=== PATIENT | male | born 1965 | race Caucasian/White ===

== ENCOUNTER 2020-05-22 10:30 | Inpatient (IN) ==
--- NOTE | 2020-04-21 13:53 | PAT Medication Instructions ---
Medication Instructions Date of Service April 21, 2020 Home Medications ibuprofen 200 mg PO Q6H PRN ASK your surgeon for instructions ibuprofen 200 mg PO Q6H PRN Other Notes If you have any questions please call us at [phone] or [phone] or [phone] or [phone]
--- NOTE | 2020-04-24 10:30 | Anesthesiology Consultation ---
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 No known COVID-19 positive contacts. No current COVID-19 related symptoms. Surgeon arranging preop COVID testing. Awaiting results. Patient states he is unsure if he is working again after having preop COVID testing but states that if he does have to that he will as usual be very diligent regarding following COVID guidelines. Chart Review Chart Review: Acceptable Risk for Surgery and Patient seen in Pre Admission Testing Teaching & Discussion Pre-Anesthesia Teaching/Discussion Notes: Instructed NPO after midnight before surgery,except medications with 15 cc of water. Medication instructions provided according to the [facility] guidelines. History Surgery Operation Date: 05/22/20 12:25 Proposed Procedures p Right Total Shoulder Arthroplasty, - Benny Fraser M.D. s Right Rotator Cuff Repair and Acromioplasty - Benny Fraser M.D. Height/Weight Height: 5 ft 7 in Weight: 106.1 kg Allergies Allergy/AdvReac Type Severity Reaction Status Date / Time Sulfa (Sulfonamide Allergy SOB, heart Verified 04/24/20 10:57 Antibiotics) racing meperidine AdvReac Intermediate GI SYMPTOMS Verified 04/18/20 14:27 Medications Home Medications Medication Instructions Recorded Confirmed Last Taken ibuprofen 200 mg PO Q6H PRN 04/18/20 04/18/20 Unknown Past Medical History Medical History (Updated 04/24/20 @ 10:58 by Stephany Mchugh) Herniated intervertebral disc History of kidney stones Obesity Osteoarthritis Situational anxiety Sleep apnea suspected, testing inconclusive, no device TMJ click occasional jaw locking episodes during sleep x years (no locking 1+ years) Exercise / Class Metabolic Activity II 4-5 Yardwork/Stairs/Walk up hill Past Family History Family History Other No family history of adverse response to anesthesia Past Surgical History Surgical History History of carpal tunnel release of both wrists History of colonoscopy History of knee replacement BL History of tooth extraction Past Anesthesia History No Hx of Anesthesia Complications and No Family Hx of Anesthesia Complications History of PONV No Hx of PONV and No Hx of Motion Sickness Social History Smoking Status: Former smoker Do You Dip or Chew Tobacco: No Smoking End Date: quit 1999 Hx Alcohol Use: No Alcohol type: beer alcohol intake frequency: a few times a week Hx Substance Use: No substance use type: does not use Review of Systems Patient denies chest pain, shortness of breath, dyspnea on exertion, reflux, cough, wheezing, palpitations. Physical Exam Vital Signs VITALS BP 126/82 P 62 TEMP 98.2 SP02 96%RA RESP 18 PHYSICAL Full neck and c-spine range of motion. Full TMJ range of motion. TMD 3 finger breaths Mallampati Score 2 Dentition: several missing including upper front (has upper partial) Lungs: clear throughout to auscultation Cardiac: regular rate and rhythm, no murmurs noted Spine: normal Carotid arteries: negative bruit Extremities: no edema Testing Laboratory Results 04/24/20 11:11 04/24/20 11:11 PT 10.5 Seconds (9.0-12.0) 04/24/20 11:11 INR 1.0 (0.9-1.1) 04/24/20 11:11 APTT 30.8 Seconds (21.0-31.0) 04/24/20 11:11 Hemoglobin A1c 5.4 % (4.5-5.6) 04/24/20 11:11 Urine Color Yellow 04/24/20 Unknown Urine Appearance Clear (Clear) 04/24/20 Unknown Urine pH 6.0 (4.5-7.5) 04/24/20 Unknown Ur Specific [place] 1.029 (1.000-1.030) 04/24/20 Unknown Urine Protein Negative (Negative) 04/24/20 Unknown Urine Glucose (UA) Negative (Negative) 04/24/20 Unknown Urine Ketones Negative (Negative) 04/24/20 Unknown Urine Nitrite Negative (Negative) 04/24/20 Unknown Ur Leukocyte Esterase Negative (Negative) 04/24/20 Unknown Blood Type O Negative 04/24/20 11:11 Antibody Screen NEGATIVE 04/24/20 11:11 Electrocardiogram Date: 04/24/20 SB at 54bpm. RAD. NS IVCD. NS TWA. Chest X-Ray Date: 04/24/20 Findings: + NAD Stress Test Date: 12/20/13 Type: DSE Stress echo/ekg negative for inducible ischemia. LVEF 50-54$. 85% MPHR. MNild AV sclerosis.
--- NOTE | 2020-04-24 11:51 | XRay Report ---
XR chest Pre-admission PA/Lat HISTORY: 54 years-old Male pat preoperative exam. No acute chest complaints COMPARISON: Chest radiograph 08/07/2019 TECHNIQUE: PA and lateral views of the chest FINDINGS: Cardiomediastinal and hilar silhouettes are within normal limits. No pneumothorax, pleural effusion, airspace consolidation or overt pulmonary edema. Bones of the chest appear grossly intact. Degenerati ve changes of the shoulders and spine. IMPRESSION: No acute process. ACT 112: Negative or not required by law. The above report was generated using voice recognition software. It may contain grammatical, syntax o r spelling errors. Electronically signed by: Neo Richey M.D. 04/24/2020 11:49 AM
[2020-04-24 11:53] LABS: Appearance Urine Clear (Clear); Bilirubin Urine Negative (Negative); Blood Urine Negative (Negative); Color Urine Yellow; Glucose Urine UA Negative (Negative); Ketones Urine Negative (Negative); Leukocyte Esterase Urine Negative (Negative); Nitrite Urine Negative (Negative); Protein Urine Negative (Negative); Specific Gravity Urine 1.029 (1.000-1.030); Urobilinogen Urine Negative (Negative)
[2020-04-24 11:54] LABS: Basophils # (auto) 0.01 K/uL (0-0.2); Basophils % (auto) 0.2 %; Eosinophils # (auto) 0.05 K/uL (0-0.5); Eosinophils % (auto) 1.1 %; Hematocrit (blood only) 43.8 % (42-52); Hemoglobin 15.3 g/dL (14.0-18.0); Lymphocytes # (auto) 1.29 K/uL (1.2-3.4); Lymphocytes % (auto) 27.2 %; Mean Corpuscular Hemoglobin 30.3 pg (25-34); Mean Corpuscular Hgb Conc 34.9 g/dL (32-36); Mean Corpuscular Volume 86.7 fL (80-100); Mean Platelet Volume 9.8 fL (7.4-10.4); Monocytes # (auto) 0.52 K/uL (0.11-0.59); Neutrophils # (auto) 2.87 K/uL (1.4-6.5); Neutrophils % (auto) 60.5 %; Platelet Count 181 K/uL (130-400); RDW Coefficient of Variation 12.7 % (11.5-14.5); RDW Standard Deviation 40.5 fL (36.4-46.3); Red Blood Count 5.05 M/uL (4.7-6.1); White Blood Count 4.74 K/uL (4.8-10.8)
[2020-04-24 12:03] LABS: Partial Thromboplastin Ratio 1.1; Partial Thromboplastin Time 30.8 Seconds (21.0-31.0); Prothrombin Time 10.5 Seconds (9.0-12.0)
[2020-04-24 12:22] LABS: Albumin Level 3.7 gm/dl (3.4-5.0); BUN Creatinine Ratio 27.1 (10-20); Calcium 8.9 mg/dl (8.5-10.1); Creatinine Clr Calc Pharmacy 101.9 ml/min; Est GFR (African American) 104.6; Est GFR (Non-African American) 90.3
[2020-04-24 12:31] LABS: Estimated Average Glucose 108 mg/dl; Hemoglobin A1C 5.4 % (4.5-5.6)
--- NOTE | 2020-04-24 17:33 | Electrocardiogram Report ---
Test Reason : Blood Pressure : / mmHG Vent. Rate : 054 BPM Atrial Rate : 054 BPM P-R Int : 166 ms QRS Dur : 124 ms QT Int : 402 ms P-R-T Axes : 052 133 004 degrees QTc Int : 381 ms Sinus bradycardia Right axis deviation Non-specific intra-ventricular conduction delay Nonspecific T wave abnormality Abnormal ECG When compared with ECG of 07-OCT-2018 13:31, QRS axis Shifted right Nonspecific T wave abnormality now evident in Lateral leads Confirmed by Lincoln Helm ([id number]) on 04/24/2020 5:33:18 PM Referred By: Benny Fraser Confirmed By:Juan Daniel Helm
--- NOTE | 2020-05-19 13:24 | History & Physical Report ---
Date of Service May 19, 2020 Assessment & Plan (1) Primary osteoarthritis, right shoulder: Based on his x-rays and MRI, I do think that he is still a candidate for a standard total shoulder arthroplasty. Given his age and activity level, I think it would be ideal to perform a standard total shoulder rather than a reverse if possible. I think this would give him a better functional outcome. However, I am worried that his partial-thickness rotator cuff tear may progress with time. I advised him that if this progresses to a full-thickness rotator cuff tear, he may require revision to a reverse total shoulder at some point in the future and he understands this. We again discussed further conservative treatment with glenohumeral joint steroid injections, but he really wants to pursue surgery as these injections have been minimally beneficial for him in the past. I think this is reasonable. I therefore offered him a right standard total shoulder arthroplasty. I will plan to put an anchor in the rotator cuff to hopefully prevent progression to a full-thickness tear at the time of surgery. I will also try to reach the anterior lateral acromion and perform an acromioplasty at the same setting. Will have to get him in for a blueprint CT for preoperative planning. Risks, benefits, and alternatives of surgery were explained in detail. The surgical procedure, as well as postoperative recovery and rehabilitation, was also explained in detail. Risks include bleeding; infection; damage to surrounding structures such as nerves, blood vessels, and tendons that run in the area; persistent pain or stiffness; hardware failure; dislocation; brachial plexus palsy; blood clots; or need for further surgery. The patient understands all of this and wishes to proceed with surgery. Preoperative workup was completed today, and informed consent was obtained. Present on Admission?: Yes Admission and Anticipated Discharge Date Admission Date: 05/22/20 Anticipated date of discharge: 05/23/20 History of Present Illness Chief Complaint: Right shoulder pain Primary Care Provider: Kesha Watts MD Mr. Roth returns today for his right shoulder pain. Again, he is a 54-year-old [id number] male with chronic right shoulder pain over the past 5 years with progressive worsening. He denies any significant injury around 5 years ago, but does note that he had a shoulder dislocation when he was about 27 years old[address] He saw Dr. Tejeda in November 2019 for this problem, and was diagnosed with arthritis. He received a steroid injection at that time, but he feels like it only gave him mild improvement in his pain and did not last very long. I also gave him a shoulder joint injection at his appointment with me in February, and he reports no improvement with that injection. This pain is waking him up at night. He is very active, and splits wood frequently. 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 At his last appointment we discussed proceeding with a total shoulder arthroplasty, and I sent him for an MRI to see if he is a candidate for a primary or we need to do a reverse total shoulder. He returns today for the results of this. Also at his last appointment, he noted some neck pain and cracking. X-rays at that time showed severe C-spine arthritis. I sent him to the spine team, who evaluated him and told him that he is already auto fusing several vertebra, and his pain may decrease with time as this continues. Allergies Allergy/AdvReac Type Severity Reaction Status Date / Time Sulfa (Sulfonamide Allergy SOB, heart Verified 04/24/20 10:57 Antibiotics) racing meperidine AdvReac Intermediate GI SYMPTOMS Verified 04/18/20 14:27 Home Medications Home Medications Medication Instructions Recorded Confirmed Type ibuprofen 200 mg PO Q6H PRN 04/18/20 04/18/20 History Past Med/Surg History Medical History (Updated 05/19/20 @ 13:24 by Benny Fraser M.D.) Herniated intervertebral disc History of kidney stones Obesity Osteoarthritis Situational anxiety Sleep apnea suspected, testing inconclusive, no device TMJ click occasional jaw locking episodes during sleep x years (no locking 1+ years) Surgical History History of carpal tunnel release of both wrists History of colonoscopy History of knee replacement BL History of tooth extraction Family History Other No family history of adverse response to anesthesia Social History Smoking Status: Former smoker Smoking End Date: quit 1999; Second Hand Exposure: No; Do You Dip or Chew Tobacco: No; Tobacco Cessation Education Requested by Patient: No Hx Alcohol Use: No Hx Substance Use: No Preferred Language: Ethiopian Communication Ability: Effective 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 Awake, alert, and oriented x 3. Appropriate mood and affect. Normal gait and station. Normal coordination and balance. Skin: The skin over the right shoulder shows no lesion or erythema. Inspection/Palpation: Visual inspection reveals no gross deformity of the shoulder. There is no palpable focal swelling. No significant focal tenderness to palpation. Range of Motion: There is severe limitation in shoulder range of motion due to pain, with palpable crepitus during motion. He can only achieve about 85 degrees of abduction, 15 degrees of external rotation, and internal rotation to the PSIS level. Stability: There is no gross ligamentous laxity. Strength: Rotator cuff strength is well maintained. Sensation: The patient reports no numbness in the hand. Vascular: Hand is warm and well perfused. No diffuse edema. Results & Data ([facility]) Diagnostic Findings Previous x-rays of the right shoulder were again reviewed. They again show severe arthritic degeneration at the glenohumeral joint with a large osteophyte at the inferior aspect of the humeral head. No obvious proximal migration of the humeral head. New MRI of the right shoulder was also reviewed. It shows at least a partial- thickness intrasubstance tear of the supraspinatus. I would estimate that this involves about 50% of the tendon thickness. No full-thickness rotator cuff tears are seen. No fatty atrophy of the rotator cuff muscle bellies. He does have a type II-III acromion. He has severe degenerative arthritis at the glenohumeral joint.
[~2020-05-22 10:30] MED LIST: ACETAMINOPHEN 500 MG TAB PO SCH; BUPIVACAINE 0.5 % 5 MG/1 ML PF 10ML VIAL ONE; CEFAZOLIN 2000MG 2,000 MG/15 ML SYR IV SCH; CeleBREX 200 MG CAP PO SCH; FAMOTIDINE 20 MG TAB PO SCH; GABAPENTIN 600 MG DOSE PO SCH; LR 15ML/HR IV SCH; METOCLOPRAMIDE HCL 10 MG TABLET PO SCH; TRANEXAMIC ACID / 0.7% NACL 1,000 MG/100 ML BAG IV SCH; dexAMETHasone 4 MG TAB PO SCH
[2020-05-22] MEDS ORDERED: HYDROmorphone INJ 1 MG/ML SYRINGE IV PRN (11:13)
[2020-05-22] MEDS ORDERED: ATROPINE SULFATE 0.1 MG/ML 10ML SYR IV PRN (11:13)
[2020-05-22] MEDS ORDERED: MEPERIDINE HCL 25 MG/ML CARP/VIAL IV PRN (11:13)
[2020-05-22] MEDS ORDERED: PHENYLEPHRINE 100MCG/ML 5ML SYR IV PRN (11:13)
[2020-05-22] MEDS ORDERED: ePHEDrine sulfate 50 MG/ML AMP IV PRN (11:13)
[2020-05-22] MEDS ORDERED: LABETALOL HCL IV 5 MG/ML 20ML IV PRN (11:13)
[2020-05-22] MEDS ORDERED: fentaNYL citrate 100 MCG/2 ML VIAL IV PRN (11:13)
[2020-05-22] MEDS ORDERED: ONDANSETRON INJ 2 MG/ML 2 ML VIAL IV PRN ×2 (11:13→19:39)
[2020-05-22] MEDS ORDERED: LIDOCAINE HCL 2% 2 ML VIAL/AMP(20MG/ML) INFIL ONE (12:08)
[2020-05-22] MEDS ORDERED: MIDAZOLAM HCL 1 MG/ML 2ML VIAL ONE (12:08)
[2020-05-22] MEDS ORDERED: PROPOFOL IV EMULSION 10 MG/ML 20 ML VIAL IV ONE (12:08)
[2020-05-22] MEDS ORDERED: fentaNYL citrate 100 MCG/2 ML VIAL ONE (12:08)
[2020-05-22] MEDS ORDERED: ONDANSETRON INJ 2 MG/ML 2 ML VIAL ONE (12:08)
[2020-05-22] MEDS ORDERED: ROCURONIUM BROMIDE 10 MG/ML 5 ML VIAL IV ONE (12:08)
[2020-05-22] MEDS ORDERED: BACITRACIN INJ 50,000 UNIT VIAL ONE (14:13)
[2020-05-22] MEDS ORDERED: EpINEphrine HCL INJ 1 MG/ML 1ML SYRINGE ONE (14:13)
[2020-05-22] MEDS ORDERED: BUPIVACAINE 0.5 % 5 MG/1 ML MPF 30ML VIAL ONE (14:13)
--- NOTE | 2020-05-22 14:29 | History & Physical Bridge Note ---
Date of Service May 22, 2020 History & Physical Bridge Note I have examined the patient, reviewed the History & Physical and in the interval since the performance of the History & Physical I have noted the following changes of clinical significance: no changes noted
[2020-05-22] MEDS ORDERED: ePHEDrine sulfate 50 MG/ML SYR ONE (15:31)
[2020-05-22] MEDS ORDERED: DEXAMETHASONE SOD INJ 4 MG/ML VIAL ONE (15:32)
--- NOTE | 2020-05-22 17:55 | Post Operative Brief Note ---
Immediate Post Op Note v1 Date of Surgery May 22, 2020 Pre & Post Diagnosis Operation Date: 05/22/20 12:25 Pre-Op Diagnosis: Right Shoulder Primary Osteoarthritis, Partial Thickness Rotator Cuff Tear, Subacromial Impingement Post-Op Diagnosis: Right Shoulder Primary Osteoarthritis, Partial Thickness Rotator Cuff Tear, Subacromial Impingement I identified the patient and participated in the time-out.: Yes Procedure Operation Date: 05/22/20 12:25 Actual Procedures Right Anatomic Total Shoulder Arthroplasty Open Biceps Tenodesis Open Acromioplasty - Benny Fraser M.D. Surgeon Benny Fraser Offset Duplicating Machine Operator None Estimated Blood Loss 100 Findings Consistent with Post-Op Diagnosis
--- NOTE | 2020-05-22 18:00 | Operative Report ---
Post Operative Report Pre & Post Diagnosis Operation Date: 05/22/20 12:25 Pre-Op Diagnosis: Right Shoulder Primary Glenohumeral Osteoarthritis, Partial Thickness Rotator Cuff Tear, Subacromial Impingement Post-Op Diagnosis: Right Shoulder Primary Glenohumeral Osteoarthritis, Partial Thickness Rotator Cuff Tear, Subacromial Impingement I identified the patient and participated in the time-out.: Yes Procedure Operation Date: 05/22/20 12:25 Actual Procedures Right Anatomic Total Shoulder Arthroplasty (65735) Open biceps tenodesis (68493) Open Acromioplasty (78617) - Benny Fraser M.D. Surgeon Benny Fraser Front Desk Representative None Estimated Blood Loss 100 Findings Consistent with Post-Op Diagnosis Specimens None Drains None Anesthesia Type General Regional Complications none Disposition Disposition: Recovery Room Indications Mr. Roth is a 54-year-old male with severe right shoulder pain. Imaging showed primary glenohumeral joint arthritis. He also had a partial-thickness rotator cuff tear and subacromial impingement. History, clinical exam, and imaging were consistent with the above diagnosis. Risks, benefits, and alternatives of surgery were explained in detail. The patient understood all this and wished to proceed. Description of Procedure Components Implanted: Tornier Anatomic Total Shoulder implants Perform Pegged Cortiloc polyethylene glenoid: Large 40mm radius, 35 degree posterior augment Ascend Flex humeral stem: 4B Standard length (78mm) Humeral head: [id number] high offset Patient was identified in the preoperative holding area. Operative extremity was marked. Regional blockade was given by the Anesthesia Staff. Patient was then brought back to the operating room, and general anesthesia was induced without complication. Appropriate weight-based dose of Ancef was infused intravenously for antibiotic prophylaxis. The patient was then placed in the beachchair position. Right arm was then prepped and draped in a standard sterile fashion using Chlorhexidine prep. A standard deltopectoral incision was made through the skin and subcutaneous tissue. The cephalic vein was identified and retracted medially. Small branches to the deltoid were coagulated as necessary. The clavipectoral fascia was then incised and the subdeltoid space was opened. The rotator cuff was found to be intact, and I therefore decided to perform an anatomic total shoulder arthroplasty as planned preoperatively. The biceps tendon was identified within the bicipital groove and tenodesed at the superior border of the pectoralis tendon with #2 FiberWire suture. The biceps tendon was then divided proximal to the tenodesis site and the rotator interval was opened. The proximal portion of the biceps tendon was excised. Lesser tuberosity osteotomy was then performed to detach the subscapularis off of the proximal humerus; this was tagged with a #0 Vicryl suture. The glenohumeral joint was then dislocated, and large osteophytes were debrided with a ronguer. The humeral head cut was then made in the appropriate inclination and version using the cutting guide. The intramedullary canal of the humerus was then opened with a canal finder. The humeral canal was then sequentially broached to the appropriate size. A protective cap was then placed on top of the humeral trial. I then turned my attention to the glenoid. The proximal stump of the biceps tendon was excised, along with the labrum circumferentially around the glenoid. The Blueprint drill guide was then positioned on the glenoid, and the guidepin was then inserted. The rotation hole for the angled lencho-glenoid reamer was also drilled. The paleo-reamer was then inserted over the guidepin and the anterior half of the glenoid reamed to an appropriate depth. The angled lencho-reamer was then inserted over the guidewire and into the rotation hole, and the posterior half of the glenoid reamed to an appropriate depth. The central peg drill hole was made over the guidewire. The drill guide for the peripheral glenoid pegs was then placed onto the glenoid surface, and 3 peripheral drill holes made within the glenoid in an appropriate orientation. Morselized cancellous bone was packed into the fins of the Cortiloc central peg, and bone cement was placed into the 3 peripheral glenoid peg holes. The glenoid component was then implanted into place, and excess cement removed. At this point I very carefully inspected the rotator cuff. A preoperative MRI showed some partial-thickness tearing at the supraspinatus. However, intraoperatively this was not readily visualized. The rotator cuff looked intact without any significant tearing. I felt that a rotator cuff repair was not necessary and potentially detrimental. I did also inspect the anterior lateral acromion. Preoperative imaging showed a type III acromion. Direct palpation confirmed an anterior lateral subacromial spur. I therefore used an osteotome to remove this anterior lateral corner of the acromion and therefore complete an open acromioplasty. A trial humeral head was placed on the trial humeral stem, and a trial reduction was carried out. Once I achieved acceptable joint stability and range of motion with the trial implants, the final humeral implants were assembled on the back table and then impacted into position. Prior to final impaction of the humeral stem, I looped #5 FiberWire sutures around the humeral stem for subsequent repair of the lesser tuberosity osteotomy. I then took the shoulder through full range of motion to ensure good stability and acceptable motion. Wound was then copiously irrigated with sterile saline. The lesser tuberosity and its attached subscapularis were then repaired to the lesser tuberosity with the previously placed #5 FiberWire sutures. The rotator interval was then closed with the shoulder held in external rotation with #2 FiberWire suture. Deep fascia was closed with 0 V-lock suture. Subcutaneous tissue was closed with 2-0 V-lock, and skin was closed with 3-0 V-lock. Skin was then sealed with Dermabond. Sterile dressings were then applied with a waterproof silver- impregnated dressing, and the arm was placed into a sling. The patient was awakened from anesthesia and taken to the Post Anesthesia Care Unit in stable condition. There were no immediate complications from the procedure. I was present and scrubbed for the entire procedure. I attest to the content of the Intraoperative Record and any orders documented therein. Any exceptions are noted below.
[2020-05-22] MEDS ORDERED: PROMETHAZINE HCL 12.5 MG in SODIUM CHLORIDE 0.9% 50 ML IV PRN (18:14)
--- NOTE | 2020-05-22 18:44 | XRay Report ---
XR shoulder RT min 2V routine CLINICAL HISTORY: Post shoulder surgery COMPARISON: MRI dated 04/04/2020 DISCUSSION: There are postsurgical changes of a total right shoulder arthroplasty. There is no disloc ation. There are right basilar atelectatic changes. IMPRESSION: Postsurgical changes of a total right shoulder arthroplasty. ACT 112: Negative or not required by law. Electronically signed by: Gregory Jeffrey M.D. 05/22/2020 6:42 PM
--- NOTE | 2020-05-22 18:53 | Anesthesiology Progress Note ---
Date of Service May 22, 2020 Anesthesia Post Procedure Vital Signs Vital Signs: Temp Pulse Pulse Resp BP Pulse Ox 05/22/20 18:45 36.5 C 82 17 132/75 95 05/22/20 18:35 89 18 113/78 95 05/22/20 18:25 85 19 133/82 94 05/22/20 18:15 93 H 20 136/86 95 05/22/20 18:05 85 16 116/76 93 05/22/20 17:59 36.2 C L 95 H 20 119/80 93 05/22/20 11:00 36.6 C 67 20 141/85 H 97 Pain Intensity Right Shoulder: Pain Intensity: 0 Transfer of Care Handoff Completed per policy Notes Mental Status: alert / awake / arousable and participated in evaluation Patient Amnestic to Procedure: Yes Nausea / Vomiting: adequately controlled Pain: adequately controlled Airway Patency, RR, SpO2: stable & adequate BP & HR: stable & adequate Hydration State: stable & adequate Anesthetic Complications: no major complications apparent and Pt Satisfied with anesthetic care
[2020-05-22] MEDS ORDERED: METOCLOPRAMIDE HCL INJ 5 MG/ML 2 ML VIAL IV PRN (19:39)
[2020-05-22] MEDS ORDERED: bisacodyL 10 MG SUPP PR PRN (19:39)
[2020-05-22] MEDS ORDERED: MAGNESIUM HYDROXIDE SUSP 30 ML UDC PO PRN (19:39)
[2020-05-22] MEDS ORDERED: NALOXONE HCL 0.4 MG/1 ML VIAL/CARP IV PRN (19:39)
[2020-05-22] MEDS ORDERED: OXYCODONE HCL IR 5 MG TAB (IMMEDIATE RELEASE) PO PRN (19:39)
[2020-05-22] MEDS ORDERED: SENNA 8.6 MG TAB PO SCH (21:00)
[2020-05-22] MEDS: SODIUM CHLORIDE 0.9% 1000ML 1,000 ML IV SCH (21:52)
[2020-05-22] MEDS: CEFAZOLIN 2000MG 2,000 MG/15 ML SYR IV SCH (21:52)
[2020-05-22] MEDS: DOCUSATE SODIUM 100 MG CAP PO SCH (22:18)
[2020-05-22] MEDS: IBUPROFEN 600 MG TAB PO SCH (22:18)
[2020-05-23] MEDS: ACETAMINOPHEN 500 MG TAB PO SCH ×2 (00:19→06:13)
[2020-05-23] MEDS ORDERED: COUGH DROP (SUGAR FREE) LOZ 24 LOZ/1 BOX BUCCAL ONE (00:28)
[2020-05-23] MEDS ORDERED: COUGH DROP (SUGAR FREE) LOZ 24 LOZ/1 BOX BUCCAL PRN (00:34)
[2020-05-23] MEDS: IBUPROFEN 600 MG TAB PO SCH ×2 (03:25→09:51)
[2020-05-23 06:09] LABS: Hematocrit (blood only) 41.2 % (42-52); Immature Granulocytes # (auto) 0.01 K/uL (0.00-0.02); Immature Granulocytes % (auto) 0.1 %; Lymphocytes # (auto) 0.81 K/uL (1.2-3.4); Lymphocytes % (auto) 8.1 %; Mean Corpuscular Hemoglobin 30.1 pg (25-34); Mean Corpuscular Volume 88.6 fL (80-100); Mean Platelet Volume 9.6 fL (7.4-10.4); Monocytes # (auto) 0.66 K/uL (0.11-0.59); Monocytes % (auto) 6.6 %; Neutrophils # (auto) 8.48 K/uL (1.4-6.5); Neutrophils % (auto) 85.2 %; Platelet Count 187 K/uL (130-400); RDW Coefficient of Variation 12.7 % (11.5-14.5); RDW Standard Deviation 40.3 fL (36.4-46.3); Red Blood Count 4.65 M/uL (4.7-6.1); White Blood Count 9.96 K/uL (4.8-10.8)
[2020-05-23] MEDS: SODIUM CHLORIDE 0.9% 1000ML 1,000 ML IV SCH (06:10)
[2020-05-23] MEDS: CEFAZOLIN 2000MG 2,000 MG/15 ML SYR IV SCH (06:13)
[2020-05-23 06:46] LABS: BUN Creatinine Ratio 20.9 (10-20); Calcium 8.5 mg/dl (8.5-10.1); Creatinine Clr Calc Pharmacy 96.7 ml/min; Est GFR (African American) 99.5; Est GFR (Non-African American) 85.8; Potassium 3.7 mmol/L (3.5-5.1)
[2020-05-23] MEDS: DOCUSATE SODIUM 100 MG CAP PO SCH (07:47)
--- NOTE | 2020-05-23 08:25 | Orthopedic Progress Note ---
Date of Service May 23, 2020 Assessment & Plan (1) Primary osteoarthritis, right shoulder: Postop day 1 status post right total shoulder arthroplasty with rotator cuff repair. PT/OT protocols nonweightbearing right upper extremity. DVT prophylaxis-aspirin p.o. daily, SCDs Pain management as written DC planning-patient planning for discharge to home with outpatient PT Admission and Anticipated Discharge Date Admission Date: May 22, 2020 Subjective Postop day 1 Patient currently sitting up in bed awake and alert. No complaints this morning. He does state that his block is still working and he is unable to fully extend his fingers at this time. He denies shortness of breath, chest pain, lightheadedness. He is hoping to go home today. Physical Exam Physical Exam: Dressings are clean, dry, and intact. Shoulder has some mild swelling. His block is obviously still working. Nontender at the right elbow and numbness continues to go down the forearm into the hand. Cap refill is less than 2 seconds. He has good flexion strength but is still unable to fully extend the fingers at this time. Results & Data ([facility]) Vital Signs (Past 12 Hours) Vital Signs Temp Pulse Resp BP Pulse Ox 05/23/20 06:58 36.5 C 79 18 108/71 96 05/23/20 03:22 36.7 C 88 18 110/70 93 05/22/20 23:01 36.5 C 99 H 18 103/66 93 05/22/20 21:40 36.6 C 105 H 16 123/76 93 05/22/20 20:40 36.6 C 102 H 16 102/70 91 Laboratory Results Laboratory Results WBC 9.96 K/uL (4.8-10.8) 05/23/20 05:28 RBC 4.65 M/uL (4.7-6.1) L 05/23/20 05:28 Hgb 14.0 g/dL (14.0-18.0) 05/23/20 05:28 Hct 41.2 % (42-52) L 05/23/20 05:28 MCV 88.6 fL (80-100) 05/23/20 05:28 MCH 30.1 pg (25-34) 05/23/20 05:28 MCHC 34.0 g/dL (32-36) 05/23/20 05:28 RDW Std Deviation 40.3 fL (36.4-46.3) 05/23/20 05:28 RDW Coeff of [place] 12.7 % (11.5-14.5) 05/23/20 05:28 Plt Count 187 K/uL (130-400) 05/23/20 05:28 MPV 9.6 fL (7.4-10.4) 05/23/20 05:28 Immature Gran % (Auto) 0.1 % 05/23/20 05:28 Neut % (Auto) 85.2 % 05/23/20 05:28 Lymph % (Auto) 8.1 % 05/23/20 05:28 [place] % (Auto) 6.6 % 05/23/20 05:28 Eos % (Auto) 0.0 % 05/23/20 05:28 Baso % (Auto) 0.0 % 05/23/20 05:28 Neut # (Auto) 8.48 K/uL (1.4-6.5) H 05/23/20 05:28 Lymph # (Auto) 0.81 K/uL (1.2-3.4) L 05/23/20 05:28 [place] # (Auto) 0.66 K/uL (0.11-0.59) H 05/23/20 05:28 Eos # (Auto) 0.00 K/uL (0-0.5) 05/23/20 05:28 Baso # (Auto) 0.00 K/uL (0-0.2) 05/23/20 05:28 Immature Gran # (Auto) 0.01 K/uL (0.00-0.02) 05/23/20 05:28 PT 10.5 Seconds (9.0-12.0) 04/24/20 11:11 INR 1.0 (0.9-1.1) 04/24/20 11:11 APTT 30.8 Seconds (21.0-31.0) 04/24/20 11:11 PTT Ratio 1.1 04/24/20 11:11 Sodium 139 mmol/L (136-145) 05/23/20 05:28 Potassium 3.7 mmol/L (3.5-5.1) 05/23/20 05:28 Chloride 108 mmol/L (98-107) H 05/23/20 05:28 Carbon Dioxide 24 mmol/L (21-32) 05/23/20 05:28 Anion Gap 7.0 (3-11) 05/23/20 05:28 BUN 20 mg/dl (7-18) H 05/23/20 05:28 Creatinine 0.98 mg/dl (0.6-1.4) 05/23/20 05:28 Est Cr Clr Drug Dosing 96.7 ml/min 05/23/20 05:28 Est GFR ( Amer) 99.5 05/23/20 05:28 Est GFR (Non-Af Amer) 85.8 05/23/20 05:28 BUN/Creatinine Ratio 20.9 (10-20) H 05/23/20 05:28 Glucose 137 mg/dl (70-99) H 05/23/20 05:28 Estimat Average Glucose 108 mg/dl 04/24/20 11:11 Hemoglobin A1c 5.4 % (4.5-5.6) 04/24/20 11:11 Calcium 8.5 mg/dl (8.5-10.1) 05/23/20 05:28 Albumin 3.7 gm/dl (3.4-5.0) 04/24/20 11:11 Urine Color Yellow 04/24/20 Unknown Urine Appearance Clear (Clear) 04/24/20 Unknown Urine pH 6.0 (4.5-7.5) 04/24/20 Unknown Ur Specific [place] 1.029 (1.000-1.030) 04/24/20 Unknown Urine Protein Negative (Negative) 04/24/20 Unknown Urine Glucose (UA) Negative (Negative) 04/24/20 Unknown Urine Ketones Negative (Negative) 04/24/20 Unknown Urine Blood Negative (Negative) 04/24/20 Unknown Urine Nitrite Negative (Negative) 04/24/20 Unknown Urine Bilirubin Negative (Negative) 04/24/20 Unknown Urine Urobilinogen Negative (Negative) 04/24/20 Unknown Ur Leukocyte Esterase Negative (Negative) 04/24/20 Unknown Blood Type O Negative 04/24/20 11:11 Antibody Screen NEGATIVE 04/24/20 11:11
[2020-05-23] MEDS ORDERED: ASPIRIN 325 MG ECTAB PO SCH (09:00)
[2020-05-23] MEDS ORDERED: MULTIVITAMIN TAB PO SCH (09:00)
--- NOTE | 2020-05-25 08:40 | Discharge Summary ---
Date of Service May 25, 2020 Admission HPI Per Admitting Provider Mr. Roth returns today for his right shoulder pain. Again, he is a 54-year-old [id number] male with chronic right shoulder pain over the past 5 years with progressive worsening. He denies any significant injury around 5 years ago, but does note that he had a shoulder dislocation when he was about 27 years old. He saw Dr. Tejeda in November 2019 for this problem, and was diagnosed with arthritis. He received a steroid injection at that time, but he feels like it only gave him mild improvement in his pain and did not last very long. I also gave him a shoulder joint injection at his appointment with me in February, and he reports no improvement with that injection. This pain is waking him up at night. He is very active, and splits wood frequently. 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 At his last appointment we discussed proceeding with a total shoulder arthroplasty, and I sent him for an MRI to see if he is a candidate for a primary or we need to do a reverse total shoulder. He returns today for the results of this. Also at his last appointment, he noted some neck pain and cracking. X-rays at that time showed severe C-spine arthritis. I sent him to the spine team, who evaluated him and told him that he is already auto fusing several vertebra, and his pain may decrease with time as this continues. Principal Diagnosis Right shoulder osteoarthritis Discharge Data Allergies Allergy/AdvReac Type Severity Reaction Status Date / Time Sulfa (Sulfonamide Allergy SOB, heart Verified 05/22/20 10:58 Antibiotics) racing meperidine AdvReac Intermediate GI SYMPTOMS Verified 05/22/20 10:58 Procedures Performed Operation Date: 05/22/20 12:25 Actual Procedures p Right Total Shoulder Arthroplasty, Right Rotator Cuff Repair and Ac romioplasty(Right) - Benny Fraser M.D. Ordered Studies 05/22/20 05:00 US - OR guided needle placemen Routine Hospital Course (1) Primary osteoarthritis, right shoulder: Patient underwent a right anatomic total shoulder arthroplasty, and was admitted under the orthopedic surgery service postoperatively. Patient tolerated the procedure well and was transferred up to the orthopedic surgery floor in stable condition. Perioperative antibiotic coverage was initiated for 24 hours. DVT prophylaxis consisting of aspirin 325 mg daily was started the morning after surgery. On postoperative day 1, pain was well controlled with oral medications only. Patient was ambulating without assistance, tolerating a regular diet, and was therefore determined to be safe and ready for discharge to home. Total Time Total Time Spent Total Time Spent (In Minutes): 15 Discharge Plan Discharge Items Patient Disposition: Home - Self-Care Reason For Visit: Right Shoulder Osteoarthritis, Rotator Cuff Tear, Discharge Diagnosis: Right shoulder osteoarthritis, partial thickness rotator cuff tear, subacromial impingement Activity: Per Instructions section Weightbearing: Right non-weightbearing Non-emergency contact: Surgeon Call non-emergency contact if: your pain is not controlled, your temperature is above 101.5, your wound has increased redness and your wound has increased drainage Follow-up/Referrals: Benny Fraser M.D. [Physician] - PCP,DAVIDA [Primary Care Provider] - Diet: Regular Addtl Attending Provider Instructions: Things to Watch Out For -Go to the Emergency Room if you have sudden onset of nausea, vomiting, chest pain, shortness of breath, or uncontrollable pain. -Call the clinic or go to the Emergency Room if you have a sudden increase in the amount of wound drainage or the drainage becomes thick, yellow or green, or foul-smelling. -For routine questions, call the clinic at [phone] during regular business hours (8am-5pm). For urgent issues after regular business hours, you may call the clinic to be connected to the on-call physician. Dressings -A special waterproof, silver-impregnated dressing was placed on your shoulder. Keep this dressing in place for 1 week after surgery. You may shower with the waterproof dressing in place, but do not soak the dressing in the bathtub or pool. -One week after surgery, you may remove the waterproof dressing. You may continue to shower, and let water run BRIEFLY over the incision, but do not soak the incision in the bathtub or pool for 2 weeks. You may also gently clean the incision with mild soap and water; pat the incision dry after cleaning-do not rub the incision. Apply a new dressing daily thereafter. Shoulder Exercises -Keep your operative shoulder in the sling for comfort, except as detailed below. -You should come out of the sling 4-5 times a day for passive pendulum exercises: lean over and swing your arm in a circular pattern. -You should also do active-assisted forward flexion exercises: use your opposite hand to lift your operative arm forward to 90 degrees. -Do not flex your elbow (curl motion) or supinate your forearm (rotating palm up) against resistance. -Subscapularis repair: Do not externally rotate your arm past neutral rotation (forearm pointed straight out from your body) or internally rotate your arm ( pull your forearm towards your body) against resistance. Do not abduct your shoulder past 90 degrees (bring your arm out to the side past shoulder level). Ice Pack -You may use an ice pack for pain relief. You should use it 20-30 minutes at a time. Place a towel between the ice pack and your skin to prevent frostbite. -You should use the ice pack fairly regularly for the first 1-2 weeks after judy paola to help reduce pain and inflammation. -About 2 weeks after your surgery, you should start using heat to loosen up your shoulder prior to doing your stretching exercises, then use the cooling sleeve after your exercises are complete to reduce swelling and pain. Pain Medicines -You have been prescribed an anti-inflammatory (Motrin/ibuprofen) and a non- narcotic pain medicine (Tylenol/acetaminophen). These are your primary pain medications. Take them each every 6 hours as instructed. It is recommended that you stagger these medicines every 3 hours (i.e. take ibuprofen at 8:00 am, then acetaminophen at 11:00 am, then ibuprofen at 2:00 pm, etc) -DO NOT take any additional anti-inflammatories (Advil, Aleve/naproxen, Mobic/meloxicam, Celebrex) or any additional Tylenol/acetaminophen products with these prescribed medications. -You have also been prescribed an additional narcotic pain medication (oxycodone). Take this medicine ONLY for breakthrough pain not controlled by the ibuprofen and acetaminophen. -Do not drive or operate heavy machinery while taking the narcotic medication. -Common side effects of narcotic pain medicines include itching, nausea, constipation, and feeling "loopy". However, if you develop a rash or hives, stop taking the medicine and call the clinic. If you develop swelling in your throat or difficulty breathing, go to the Emergency Room or call 911 IMMEDIATELY. -You may take over the counter stool softeners if needed for constipation. Aspirin -Take a full strength (325mg) aspirin every day for 4 weeks (28 days) to prevent blood clots. -If you were taking a baby aspirin (81mg) prior to surgery, you may resume taking this 81mg dose after you complete the 28-day course of the 325mg strength dose; do not take the 325mg dose in addition to your 81mg dose. -Be aware that you will bruise easier while taking Aspirin; this is normal. However, if you develop a significantly large area of swelling after an injury, or have a cut that will not stop bleeding, call the clinic or go to the Emergency Room immediately. Pending Studies at Discharge: No Stand-Alone Forms: [facility] Medications and DC Order Prescriptions: Discontinued ibuprofen 200 mg Tablet 200 mg PO Q6H PRN (Reason: Pain) RF: 0 Discharge Orders: Discharge Order (Routine); Ordered 05/23/20 Ordered By: Sav Acosta/Other Patient Handouts: Living with Osteoarthritis, External Rotate Shoulder Strength Admission Data Admit Date/Time: 05/22/20 18:27 Attending Provider: Benny Fraser Admit Provider: Benny Fraser Primary Care Provider: PCP,NO Other Interventions: Discharge Summary Assessment (RN) Last Done: 05/23/20 09:03
[2020-05-29] MEDS ORDERED: INFLUENZA VIRUS QUAD VACCINE 0.5 ML SYR IM ONE (19:44)
[2020-05-29] MEDS ORDERED: INFLUENZA ADMINISTRATION CHARGE ONE (19:44)
== END 2020-05-23 11:45 | disposition home or self-care (01) | DRG 483 ==
LOC: ASU 10:30 → 3W 18:27

== ENCOUNTER 2020-07-24 11:27 | Observation (INO) ==
--- NOTE | 2020-07-15 09:41 | Anesthesiology Consultation ---
Date of Service July 15, 2020 Assessment & Plan (1) Encounter for pre-operative examination: Chart Review Chart Review: Acceptable Risk for Surgery (pending preop Covid testing ) and Patient NOT seen in Pre Admission Testing Per nursing assessment 07/15/2020, pt resides in [facility]. 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 Follows all Covid guidelines in public places. No known Covid positive contacts or Covid related symptoms. Patient will be contacting surgeon re: preop Covid testing instructions. Right TSA, open biceps tenodesis, open acromioplasty 05/22/2020 = done under GA with grade 2 view. ETT #8.0. No anesthesia issues noted per record. Last seen by PCP 05/01/2020 (prior to May 2020 shoulder surgery) = " revised cardiac index of 0: Patient is cleared for surgery." History Surgery Operation Date: 07/24/20 13:25 Proposed Procedures p Right Shoulder Arthrotomy, Possible Rotator Cuff Repair, - Benny Fraser M.D. s Possible Total Shoulder Arthroplasty Revision - Benny Fraser M.D. Height/Weight Height: 5 ft 7 in Weight: 101.151 kg Allergies Allergy/AdvReac Type Severity Reaction Status Date / Time Sulfa (Sulfonamide Allergy Unknown SOB, heart Verified 07/15/20 08:02 Antibiotics) racing meperidine AdvReac Unknown GI SYMPTOMS Verified 07/15/20 08:02 Medications Home Medications Medication Instructions Recorded Confirmed Last Taken No Known Home Medications 07/15/20 07/15/20 Unknown Past Medical History Medical History Herniated intervertebral disc History of kidney stones Situational anxiety Sleep apnea suspected, testing inconclusive, no device TMJ click occasional jaw locking episodes during sleep x years (no locking 1+ years) Past Family History Family History Other No family history of adverse response to anesthesia Past Surgical History Surgical History History of carpal tunnel release of both wrists History of colonoscopy History of right knee surgery FOR INFECTION 3 WEEKS FOLLOWING TKA - APPROX 5 YR AGO History of right shoulder replacement MAY 2020 History of tooth extraction History of total left knee replacement History of total right knee replacement Social History Smoking Status: Former smoker Do You Dip or Chew Tobacco: No Smoking End Date: 1999 Hx Alcohol Use: Yes Alcohol type: beer alcohol intake frequency: a few times a week Hx Substance Use: No substance use type: does not use Testing Laboratory Results Laboratory Tests 07/14/20 07/14/20 07/14/20 15:54 15:54 15:54 WBC 4.88 Hgb 14.8 Hct 43.2 Plt Count 226 PT 10.5 INR 1.0 APTT 29.7 Sodium Potassium Chloride Carbon Dioxide BUN Creatinine Glucose Hemoglobin A1c 5.2 07/14/20 15:54 WBC Hgb Hct Plt Count PT INR APTT Sodium 140 Potassium 3.6 Chloride 108 H Carbon Dioxide 25 BUN 17 Creatinine 0.90 Glucose 96 Hemoglobin A1c 07/14/20= UA: Negative Electrocardiogram Date: 04/24/20 SB at 54bpm. RAD. NS IVCD. NS TWA. Chest X-Ray Date: 04/24/20 Findings: + NAD Other Testing Chest CTA 06/11/2020 = no acute intrathoracic findings. No evidence of acute pulmonary embolism. No evidence of focal pulmonary consolidation. No pleural effusions are visualized. No evidence of thoracic aortic dilation.
--- NOTE | 2020-07-23 17:17 | History & Physical Report ---
Date of Service July 23, 2020 Assessment & Plan (1) Unspecified subluxation of right shoulder joint, subsequent encounter: He again has acute loss of function in his right shoulder after a fall on his steps about 3.5 weeks after surgery. I again think that he either disrupted the rotator interval or tore through his rotator cuff. He appears to have anterior escape of the humeral component. He obviously is not improving his function at all over the past few times I have seen him. I think he will require revision surgery. What we do during that surgery is largely dependent on intraoperative findings. This may involve just downsizing the humeral head and repairing the rotator interval. However, if his rotator cuff has significantly torn, I may need to revise him to a reverse total shoulder arthroplasty. This was all explained in detail, and he understands and is in agreement this plan. Risks, benefits, and alternatives of surgery were explained in detail. The surgical procedure, as well as postoperative recovery and rehabilitation, was also explained in detail. Risks include bleeding; infection; damage to surrounding structures such as nerves, blood vessels, and tendons that run in the area; persistent pain or stiffness; hardware failure; dislocation; brachial plexus palsy; blood clots; or need for further surgery. The patient understands all of this and wishes to proceed with surgery. Preoperative workup was completed today, and informed consent was obtained. Present on Admission?: Yes History of Present Illness Primary Care Provider: NO PCP Previous Surgery: 05/22/20 - Right anatomic total shoulder arthroplasty with subscapularis repair and biceps tenodesis, open acromioplasty Mr. Roth is about 7 weeks out from surgery and is again having difficulty with active motion. He says he had been doing fairly well, with the ability to raise his arm to the side and forward to at least 50 degrees with therapy, but he seems to have lost that function after he fell on his steps and caught himself with his right arm at around 3.5 weeks after surgery. He had sudden severe pain in his right shoulder at that time, up to about 7 out of 10, but it resolved over the next day or so with some rest and anti-inflammatories. However, it is now very difficult for him to actively abduct or forward flex. I was suspicious that he possibly tore through his rotator interval, and sent him for CT scan to evaluate this further. He returns today for the results of this. He again notes today that the severe arthritis pain that he was having prior to surgery is basically completely resolved. He does not have much pain now. His main issue is just the loss of function in that shoulder. Allergies Allergy/AdvReac Type Severity Reaction Status Date / Time Sulfa (Sulfonamide Allergy Unknown SOB, heart Verified 07/15/20 08:02 Antibiotics) racing meperidine AdvReac Unknown GI SYMPTOMS Verified 07/15/20 08:02 Home Medications Home Medications Medication Instructions Recorded Confirmed Type No Known Home Medications 07/15/20 07/15/20 History Past Med/Surg History Medical History (Updated 07/23/20 @ 17:19 by Benny Fraser M.D.) Herniated intervertebral disc History of kidney stones Situational anxiety Sleep apnea suspected, testing inconclusive, no device TMJ click occasional jaw locking episodes during sleep x years (no locking 1+ years) Surgical History History of carpal tunnel release of both wrists History of colonoscopy History of right knee surgery FOR INFECTION 3 WEEKS FOLLOWING TKA - APPROX 5 YR AGO History of right shoulder replacement MAY 2020 History of tooth extraction History of total left knee replacement History of total right knee replacement Family History Other No family history of adverse response to anesthesia Social History Smoking Status: Former smoker Second Hand Exposure: No; Hx Alcohol Use: Yes Alcohol type: beer Hx Substance Use: No Preferred Language: [place] Communication Ability: Effective 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 His active range of motion is very limited. Passively, I can take him up to about 80 degrees of abduction, but he is unable to hold it there. It is difficult to tell with his stiffness, but I am concerned that he may have some anterior escape of the implant with attempts at active abduction. Subscapularis strength however is quite good. External rotation strength is also good. Biceps muscle belly is symmetric in location. Results & Data ([facility]) Diagnostic Findings CT scan of the right shoulder was reviewed. Unfortunately, I did not quite reduce the metal scatter as much as I had hoped. It is difficult to visualize the rotator cuff tendons. However, it is clearly apparent that he has significant anterior subluxation of the glenohumeral joint. The radiopaque marker on the glenoid component is easily visible, and the humeral head is clearly subluxed nearly completely anterior to this.
[~2020-07-24 11:27] MED LIST changes: -ACETAMINOPHEN 500 MG TAB PO SCH; -CEFAZOLIN 2000MG 2,000 MG/15 ML SYR IV SCH; -CeleBREX 200 MG CAP PO SCH; -FAMOTIDINE 20 MG TAB PO SCH; -GABAPENTIN 600 MG DOSE PO SCH; -METOCLOPRAMIDE HCL 10 MG TABLET PO SCH; -TRANEXAMIC ACID / 0.7% NACL 1,000 MG/100 ML BAG IV SCH; +ceFAZolin 2000MG 2,000 MG/15 ML SYR IV SCH; -dexAMETHasone 4 MG TAB PO SCH
[2020-07-24] MEDS ORDERED: ATROPINE SULFATE 0.1 MG/ML 10ML SYR IV PRN (13:50)
[2020-07-24] MEDS ORDERED: ONDANSETRON INJ 2 MG/ML 2 ML VIAL IV PRN ×2 (13:50→20:36)
[2020-07-24] MEDS ORDERED: fentaNYL citrate 100 MCG/2 ML VIAL IV PRN (13:50)
[2020-07-24] MEDS ORDERED: ePHEDrine sulfate 50 MG/ML AMP IV PRN (13:50)
[2020-07-24] MEDS ORDERED: NEOSTIGMINE METHYLSULFATE 1 MG/ML 10ML VIAL ONE (13:51)
[2020-07-24] MEDS ORDERED: ONDANSETRON INJ 2 MG/ML 2 ML VIAL ONE (13:51)
[2020-07-24] MEDS ORDERED: GLYCOPYRROLATE 0.2 MG/ML VIAL ONE (13:51)
[2020-07-24] MEDS ORDERED: LIDOCAINE HCL 2% 2 ML VIAL/AMP(20MG/ML) INFIL ONE (13:51)
[2020-07-24] MEDS ORDERED: DEXAMETHASONE SOD INJ 4 MG/ML VIAL ONE (13:51)
[2020-07-24] MEDS ORDERED: fentaNYL citrate 100 MCG/2 ML VIAL ONE (13:51)
[2020-07-24] MEDS ORDERED: MIDAZOLAM HCL 1 MG/ML 2ML VIAL ONE (13:51)
[2020-07-24] MEDS ORDERED: PROPOFOL IV EMULSION 10 MG/ML 20 ML VIAL IV ONE (13:51)
--- NOTE | 2020-07-24 14:34 | History & Physical Bridge Note ---
Date of Service July 24, 2020 History & Physical Bridge Note I have examined the patient, reviewed the History & Physical and in the interval since the performance of the History & Physical I have noted the following changes of clinical significance: no changes noted
[2020-07-24] MEDS ORDERED: ROCURONIUM BROMIDE 10 MG/ML 5 ML VIAL IV ONE ×2 (15:54→16:51)
--- NOTE | 2020-07-24 18:01 | Post Operative Brief Note ---
Immediate Post Op Note v1 Date of Surgery July 24, 2020 Pre & Post Diagnosis Operation Date: 07/24/20 13:25 Pre-Op Diagnosis: Unspecified subluxation of right shoulder joint Post-Op Diagnosis: Failed anatomic total shoulder arthroplasty with torn rotator cuff I identified the patient and participated in the time-out.: Yes Procedure Operation Date: 07/24/20 13:25 Actual Procedures p Right Revision total shoulder arthroplasty of humeral and glenoid components, conversion to reverse(Right) - Benny Fraser M.D. Surgeon Benny Fraser Senior Web Analyst None Estimated Blood Loss 125 Findings Consistent with Post-Op Diagnosis
--- NOTE | 2020-07-24 18:16 | Operative Report ---
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 Surgeon Benny Fraser [employer] None Estimated Blood Loss 125 Findings Consistent with Post-Op Diagnosis Specimens None Drains None Anesthesia Type General Regional Complications none Disposition Disposition: Recovery Room Indications Mr. Roth is a 55-year-old male who previously underwent a right shoulder anatomic total shoulder arthroplasty 2 months ago on May 22. He was doing very well until about 3.5 weeks after surgery he fell and felt a tear in his shoulder. He had immediate pain and inability to lift his arm. He did not improve with physical therapy. History, clinical exam, and imaging were consistent with the above diagnosis. Risks, benefits, and alternatives of surgery were explained in detail. The patient understood all this and wished to proceed. Description of Procedure Components Implanted: Tornier Reverse Total Shoulder implants Perform glenoid baseplate: 29mm, 35 degree half wedge with 6.5mm central screw and 5.0mm peripheral screws Glenosphere: 39mm, +3mm, eccentric offset Ascend Flex humeral stem: 3B Standard length (74mm) Humeral tray: 3.5mm offset, +0mm thickness Polyethylene insert: 39mm, +9mm thickness Patient was identified in the preoperative holding area. Operative extremity was marked. Regional blockade was given by the Anesthesia Staff. Patient was then brought back to the operating room, and general anesthesia was induced with out complication. Appropriate weight-based dose of Ancef was infused intravenously for antibiotic prophylaxis. The patient was then placed in the beachchair position. Right arm was then prepped and draped in a standard sterile fashion using Chlorhexidine prep. His previous deltopectoral incision was reopened. The cephalic vein was identified and retracted laterally. Small branches to the pectoralis were coagulated as necessary. I incised through scar to get down to the humeral shaft. The coracoid was palpated, and the conjoint tendon protected. I developed the interval between the conjoint tendon and subscapularis. The subdeltoid space was reopened by bluntly dissecting through the scar tissue that had formed. Immediately visible upon opening the subdeltoid space was the humeral head of his previous anatomic total shoulder arthroplasty. The supraspinatus tendon was found to have completely torn off of its greater tuberosity insertion. The subscapularis and the previous lesser tuberosity osteotomy was still intact and in its repaired anatomic position after his previous surgery. The subscapularis and lesser tuberosity was peeled off of the humeral shaft, and previous FiberWire sutures were removed as they were encountered. With finding the rotator cuff to be deficient, I decided to convert his anatomic total shoulder arthroplasty to a reverse total shoulder arthroplasty. The previous anatomic head was disengaged from the humeral stem and removed. I decided that I would need to recut the humerus to a lower level for proper placement of a reverse total shoulder arthroplasty. I therefore decided to remove the humeral stem. Fortunately, I was able to disimpact it from the humerus with an extraction device without requiring any type of osteotomy. I then verified proper retroversion of my previous humeral cut. I then recut the humerus a few millimeters more distal for proper level for a reverse total shoulder arthroplasty. The humeral canal was then sequentially broached to the appropriate size. A protective cap was then placed on top of the humeral trial. I then turned my attention to the glenoid. I had previously placed a 35 degree half wedge glenoid component. I drilled a small hole through the center of the polyethylene glenoid component, directly through the Cortiloc central peg. I then threaded the glenoid extractor device into this hole and was able to extracted with a slap hammer. The glenoid component came out in 1 piece. There was bone cement within the 3 peripheral peg holes. The cement plugs were removed with the cement extraction device. I then copiously irrigated the glenoid and debrided any soft tissue. I then assessed the bone stock. It still looked very good and had a nice flat anterior reamed surface from the paleoglenoid, and a 35 degree posterior ream from the neoglenoid. I therefore trialed a 35 degree half wedge 29 mm baseplate. This fit very nicely into the previously reamed surfaces and was the best fit of any of the other trial baseplates. The central screw hole was drilled, and appropriate length 6.5mm central screw was selected. The baseplate was then implanted into place by tightening down the central screw. A peripheral 5mm nonlocking screw was placed posteriorly first for additional compression of the baseplate, and then additional locking 5 mm peripheral screws were placed to complete fixation of the baseplate. I then trialed different glenosphere sizes, and selected a 39 mm, +3 mm, eccentric offset glenosphere and has a proper size. Glenosphere was then impacted and secured. A trial humeral tray and insert were placed on the trial humeral stem, and a trial reduction was carried out. Once I achieved acceptable joint stability and range of motion with the trial implants, the final humeral implants were assembled on the back table and then impacted into position. I then took the shoulder through full range of motion to ensure good stability and acceptable motion. Wound was then copiously irrigated with sterile saline. Deep fascia was closed with 0 V-lock suture. Subcutaneous tissue was closed with 2-0 V-lock, and skin was closed with 3-0 V-lock. Skin was then sealed with Dermabond. Sterile dressings were then applied with a waterproof silver-impregnated dressing, and the arm was placed into a sling. The patient was awakened from anesthesia and taken to the Post Anesthesia Care Unit in stable condition. There were no immediate complications from the procedure. I was present and scrubbed for the entire procedure. I attest to the content of the Intraoperative Record and any orders documented therein. Any exceptions are noted below.
--- NOTE | 2020-07-24 18:36 | XRay Report ---
XR shoulder RT min 2V routine CLINICAL HISTORY: Post shoulder surgery COMPARISON: 05/22/2020 DISCUSSION: There is evidence for a right shoulder arthroplasty revision. There is now evidence for a reverse total right shoulder arthroplasty. There is no dislocation. Gas within the soft tissues felt to be postsurgical. Right basilar pulmonary opacities likely representing atelectasis/scarring IMPRESSION: Postsurgical changes of a reverse total right shoulder arthroplasty. No evidence of dislo cation. ACT 112: Negative or not required by law. Electronically signed by: Gregory Jeffrey M.D. 07/24/2020 6:34 PM
--- NOTE | 2020-07-24 19:03 | Anesthesiology Progress Note ---
Date of Service July 24, 2020 Anesthesia Post Procedure Vital Signs Vital Signs: Temp Pulse Pulse Resp BP Pulse Ox 07/24/20 19:00 36.8 C 61 18 129/72 98 07/24/20 18:50 36.8 C 75 18 126/70 98 07/24/20 18:40 61 20 123/65 98 07/24/20 18:30 72 22 122/72 97 07/24/20 18:20 69 21 125/77 97 07/24/20 18:10 88 19 132/74 97 07/24/20 18:04 36.1 C L 104 H 16 121/81 100 07/24/20 12:33 63 20 140/75 99 07/24/20 12:04 36.9 C 76 18 129/76 97 Transfer of Care Handoff Completed per policy Notes Mental Status: alert / awake / arousable Patient Amnestic to Procedure: Yes Nausea / Vomiting: adequately controlled Pain: adequately controlled Airway Patency, RR, SpO2: stable & adequate BP & HR: stable & adequate Hydration State: stable & adequate Anesthetic Complications: no major complications apparent
[2020-07-24] MEDS ORDERED: SODIUM CHLORIDE 0.9% 1000ML 1,000 ML IV SCH (20:36)
[2020-07-24] MEDS ORDERED: MAGNESIUM HYDROXIDE SUSP 30 ML UDC PO PRN (20:36)
[2020-07-24] MEDS ORDERED: METOCLOPRAMIDE HCL INJ 5 MG/ML 2 ML VIAL IV PRN (20:36)
[2020-07-24] MEDS ORDERED: oxyCODONE HCL IR 5 MG TAB (IMMEDIATE RELEASE) PO PRN (20:36)
[2020-07-24] MEDS ORDERED: NALOXONE HCL 0.4 MG/1 ML VIAL/CARP IV PRN (20:36)
[2020-07-24] MEDS ORDERED: bisacodyL 10 MG SUPP PR PRN (20:36)
[2020-07-24] MEDS ORDERED: SENNA 8.6 MG TAB PO SCH (21:00)
[2020-07-24] MEDS: ACETAMINOPHEN 500 MG TAB PO SCH (21:24)
[2020-07-24] MEDS: DOCUSATE SODIUM 100 MG CAP PO SCH (21:25)
[2020-07-24] MEDS: ceFAZolin 2000MG 2,000 MG/15 ML SYR IV SCH (21:25)
[2020-07-24] MEDS ORDERED: INFLUENZA VIRUS QUAD VACCINE 0.5 ML SYR IM ONE (21:33)
[2020-07-24] MEDS ORDERED: INFLUENZA ADMINISTRATION CHARGE ONE (21:33)
[2020-07-24] MEDS ORDERED: COUGH DROP (SUGAR FREE) LOZ 24 LOZ/1 BOX BUCCAL PRN (22:08)
[2020-07-24] MEDS: IBUPROFEN 600 MG TAB PO SCH (23:18)
[2020-07-25] MEDS: ACETAMINOPHEN 500 MG TAB PO SCH ×2 (03:45→10:05)
[2020-07-25] MEDS: IBUPROFEN 600 MG TAB PO SCH ×2 (05:21→10:06)
[2020-07-25] MEDS: ceFAZolin 2000MG 2,000 MG/15 ML SYR IV SCH (05:27)
[2020-07-25 06:30] LABS: Eosinophils # (auto) 0.01 K/uL (0-0.5); Eosinophils % (auto) 0.1 %; Hematocrit (blood only) 37.6 % (42-52); Hemoglobin 12.5 g/dL (14.0-18.0); Immature Granulocytes # (auto) 0.01 K/uL (0.00-0.02); Immature Granulocytes % (auto) 0.1 %; Lymphocytes # (auto) 0.83 K/uL (1.2-3.4); Lymphocytes % (auto) 10.2 %; Mean Corpuscular Hemoglobin 29.9 pg (25-34); Mean Corpuscular Hgb Conc 33.2 g/dL (32-36); Mean Platelet Volume 9.5 fL (7.4-10.4); Monocytes # (auto) 0.55 K/uL (0.11-0.59); Monocytes % (auto) 6.8 %; Neutrophils # (auto) 6.74 K/uL (1.4-6.5); Neutrophils % (auto) 82.8 %; Platelet Count 205 K/uL (130-400); RDW Coefficient of Variation 12.8 % (11.5-14.5); RDW Standard Deviation 42.1 fL (36.4-46.3); Red Blood Count 4.18 M/uL (4.7-6.1); White Blood Count 8.14 K/uL (4.8-10.8)
[2020-07-25 07:05] LABS: BUN Creatinine Ratio 16.4 (10-20); Creatinine Clr Calc Pharmacy 88.8 ml/min; Est GFR (African American) 91.9; Est GFR (Non-African American) 79.3
[2020-07-25] MEDS ORDERED: ASPIRIN 325 MG ECTAB PO SCH (09:00)
[2020-07-25] MEDS ORDERED: MULTIVITAMIN TAB PO SCH (09:00)
[2020-07-25] MEDS: DOCUSATE SODIUM 100 MG CAP PO SCH (10:06)
--- NOTE | 2020-07-25 11:35 | Orthopedic Progress Note ---
Date of Service July 25, 2020 Assessment & Plan (1) Unspecified subluxation of right shoulder joint, subsequent encounter: Postop day #1 status post Right revision total shoulder arthroplasty, humeral and glenoid components, conversion from anatomic to reverse arthroplasty PT/OT Pain control DVT prophylaxisaspirin 325 mg daily D/C planninghome today with outpatient physical therapy. Admission and Anticipated Discharge Date Admission Date: July 24, 2020 Subjective States the pain in the right shoulder is controlled. He still has some numbness in the area of the shoulder in the incision. He has sensation back in his hand. He is anxious to be discharged today. Since he had his previous surgery approximately just 2 months ago, he feels he is ready to go home now. Denies chest pain, shortness of breath, lightheadedness. No other complaints. Physical Exam Constitutional: WD/WN, vitals as above Musculoskeletal: Shoulder: + ecchymosis (Mild ecchymosis along the proximal biceps) and + surgical incision (Right shoulder Silverlon dressing clean/dry/intact); no deformity, no skin erythema and no surgical drain present Neurologic: normal touch/pain/proprioception Psychiatric: A+Ox3, euthymic affect Speech: normal rate/rhythm/volume of speech Results & Data ([facility]) Vital Signs (Past 12 Hours) Vital Signs Temp Pulse Resp BP Pulse Ox 07/25/20 08:07 36.7 C 84 18 115/74 96 07/25/20 03:04 36.7 C 93 H 16 109/69 95
--- NOTE | 2020-07-25 16:53 | Anesthesiology Progress Note ---
Date of Service July 25, 2020 late entry; pt seen at 0815 Anesthesia Post Procedure Vital Signs Vital Signs: Temp Pulse Pulse Resp BP Pulse Ox 07/25/20 11:41 36.7 C 100 H 84 18 115/74 96 07/25/20 08:07 36.7 C 84 18 115/74 96 07/25/20 03:04 36.7 C 93 H 16 109/69 95 07/24/20 22:49 36.4 C L 71 20 108/67 93 07/24/20 21:54 36.9 C 100 H 18 120/72 93 07/24/20 20:50 36.9 C 118 H 18 125/70 95 07/24/20 20:20 36.8 C 112 H 18 122/73 95 07/24/20 19:50 37.0 C 110 H 18 118/74 96 07/24/20 19:30 36.8 C 67 18 120/79 97 07/24/20 19:20 36.8 C 101 H 20 118/68 99 07/24/20 19:10 36.8 C 90 20 119/73 98 07/24/20 19:00 36.8 C 61 18 129/72 98 07/24/20 18:50 36.8 C 75 18 126/70 98 07/24/20 18:40 61 20 123/65 98 07/24/20 18:30 72 22 122/72 97 07/24/20 18:20 69 21 125/77 97 07/24/20 18:10 88 19 132/74 97 07/24/20 18:04 36.1 C L 104 H 16 121/81 100 Pain Intensity Right Shoulder: Pain Intensity: 0 Notes Mental Status: alert / awake / arousable and participated in evaluation Nausea / Vomiting: adequately controlled Pain: adequately controlled Airway Patency, RR, SpO2: stable & adequate BP & HR: stable & adequate Hydration State: stable & adequate Anesthetic Complications: no major complications apparent and Pt Satisfied with anesthetic care
--- NOTE | 2020-07-28 08:07 | Discharge Summary ---
Date of Service July 28, 2020 Admission HPI Per Admitting Provider Previous Surgery: 05/22/20 - Right anatomic total shoulder arthroplasty with subscapularis repair and biceps tenodesis, open acromioplasty Mr. Roth is about 7 weeks out from surgery and is again having difficulty with active motion. He says he had been doing fairly well, with the ability to raise his arm to the side and forward to at least 50 degrees with therapy, but he seems to have lost that function after he fell on his steps and caught himself with his right arm at around 3.5 weeks after surgery. He had sudden severe pain in his right shoulder at that time, up to about 7 out of 10, but it resolved ove r the next day or so with some rest and anti-inflammatories. However, it is now very difficult for him to actively abduct or forward flex. I was suspicious that he possibly tore through his rotator interval, and sent him for CT scan to evaluate this further. He returns today for the results of this. He again notes today that the severe arthritis pain that he was having prior to surgery is basically completely resolved. He does not have much pain now. His main issue is just the loss of function in that shoulder. Principal Diagnosis Right shoulder rotator cuff tear after anatomic total shoulder arthroplasty Discharge Data Allergies Allergy/AdvReac Type Severity Reaction Status Date / Time Sulfa (Sulfonamide Allergy Unknown SOB, heart Verified 07/24/20 12:00 Antibiotics) racing meperidine AdvReac Unknown GI SYMPTOMS Verified 07/24/20 12:00 Procedures Performed Operation Date: 07/24/20 13:25 Actual Procedures Right revision total shoulder arthroplasty of humeral and glenoid components, conversion from anatomic to reverse - Benny Fraser M.D. Ordered Studies 07/24/20 05:00 US - OR guided needle placemen Routine Hospital Course (1) Primary osteoarthritis, right shoulder: Patient was taken to the operating room on the date of admission. Intraoperatively, he was found to have complete disruption of his supraspinatus after his previous anatomic total shoulder arthroplasty. He therefore underwent a right revision total shoulder arthroplasty of the humeral and glenoid components, with conversion from an anatomic to a reverse total shoulder arthroplasty. Patient tolerated the procedure well and was transferred up to the general orthopedic surgery floor in stable condition. Perioperative antibiotic coverage was initiated, and continued for 24 hours postoperatively. DVT prophylaxis was initiated consisting of SCDs and aspirin 325 mg daily. Perioperative pain control regimen was transitioned to strictly oral pain medications by postoperative day 1. On postoperative day 1 the patient was doi ng very well. Pain was well controlled, and patient was mobilizing well with therapy. Patient was determined be safe and ready for discharge to home. Total Time Total Time Spent Total Time Spent (In Minutes): 15 Discharge Plan Discharge Items Patient Disposition: Home - Self-Care Reason For Visit: Right Shoulder, Rotator Cuff Tear Discharge Diagnosis: Right shoulder rotator cuff tear after anatomic total shoulder arthroplasty Activity: Per Instructions section Non-emergency contact: Surgeon Call non-emergency contact if: your pain is not controlled, your temperature is above 101.5, your wound has increased redness and your wound has increased drainage Follow-up/Referrals: Benny Fraser M.D. [Physician] - PCP,DAVIDA [Primary Care Provider] - Diet: Regular Addtl Attending Provider Instructions: Things to Watch Out For -Go to the Emergency Room if you have sudden onset of nausea, vomiting, chest pain, shortness of breath, or uncontrollable pain. -Call the clinic or go to the Emergency Room if you have a sudden increase in the amount of wound drainage or the drainage becomes thick, yellow or green, or foul-smelling. -For routine questions, call the clinic at [phone] during regular business hours (8am-5pm). For urgent issues after regular business hours, you may call the clinic to be connected to the on-call physician. Dressings -A special waterproof, silver-impregnated dressing was placed on your shoulder. Keep this dressing in place for 1 week after surgery. You may shower with the waterproof dressing in place, but do not soak the dressing in the bathtub or pool. -One week after surgery, you may remove the waterproof dressing. You may continue to shower, and let water run BRIEFLY over the incision, but do not soak the incision in the bathtub or pool for 2 weeks. You may also gently clean the incision with mild soap and water; pat the incision dry after cleaning-do not rub the incision. Apply a new dressing daily thereafter. Shoulder Exercises -Keep your operative shoulder in the sling for comfort, except as detailed below. -You should come out of the sling 4-5 times a day for passive pendulum exercises: lean over and swing your arm in a circular pattern. -You should also do active-assisted forward flexion exercises: use your opposite hand to lift your operative arm forward to 90 degrees. Ice Pack -You may use an ice pack for pain relief. You should use it 20-30 minutes at a time. Place a towel between the ice pack and your skin to prevent frostbite. -You should use the ice pack fairly regularly for the first 1-2 weeks after surgery to help reduce pain and inflammation. -About 2 weeks after your surgery, you should start using heat to loosen up your shoulder prior to doing your stretching exercises, then use the cooling sleeve after your exercises are complete to reduce swelling and pain. Pain Medicines -Your prescriptions for pain medications have already been sent to the pharmacy on file at [facility]. -You have been prescribed an anti-inflammatory (Motrin/ibuprofen) and a non- narcotic pain medicine (Tylenol/acetaminophen). These are your primary pain medications. Take them each every 6 hours as instructed. It is recommended that you stagger these medicines every 3 hours (i.e. take ibuprofen at 8:00 am, then acetaminophen at 11:00 am, then ibuprofen at 2:00 pm, etc) -DO NOT take any additional anti-inflammatories (Advil, Aleve/naproxen, Mobic/meloxicam, Celebrex) or any additional Tylenol/acetaminophen products with these prescribed medications. -You have also been prescribed an additional narcotic pain medication (oxycodone). Take this medicine ONLY for breakthrough pain not controlled by the ibuprofen and acetaminophen. -Do not drive or operate heavy machinery while taking the narcotic medication. -Common side effects of narcotic pain medicines include itching, nausea, constip ation, and feeling "loopy". However, if you develop a rash or hives, stop taking the medicine and call the clinic. If you develop swelling in your throat or difficulty breathing, go to the Emergency Room or call 911 IMMEDIATELY. -You may take over the counter stool softeners if needed for constipation. Aspirin -Take a full strength (325mg) aspirin every day for 4 weeks (28 days) to prevent blood clots. -If you were taking a baby aspirin (81mg) prior to surgery, you may resume taking this 81mg dose after you complete the 28-day course of the 325mg strength dose; do not take the 325mg dose in addition to your 81mg dose. -Be aware that you will bruise easier while taking Aspirin; this is normal. However, if you develop a significantly large area of swelling after an injury, or have a cut that will not stop bleeding, call the clinic or go to the Emergency Room immediately. Pending Studies at Discharge: No Stand-Alone Forms: [facility] Medications and DC Order Prescriptions: No Action No Known Home Medications RF: 0 Discharge Orders: Discharge Order (Routine); Ordered 07/25/20 Ordered By: Benny Fraser Admission Data Admit Date/Time: 07/24/20 18:14 Attending Provider: Benny Fraser Admit Provider: Benny Fraser Primary Care Provider: PCP,NO Other Interventions: Discharge Summary Assessment (RN) Last Done: 07/25/20 11:41
== END 2020-07-25 13:16 | disposition home or self-care (01) ==
LOC: ASU 11:27 → 3W 18:14 → INTOOBSV 18:14